=== PATIENT | female | born 1970 | race Caucasian/White ===

== ENCOUNTER 2016-09-16 06:55 | Emergency (ER) | payer OTHER ==
[~2016-09-16] VITALS: Ht 175.3 cm; Wt 135.6 kg
[~2016-09-16 06:55] MED LIST: CIPRO500 MG PO; FLAGYL500 MG PO; PRILOSEC20 MG PO; PROZAC20 MG PO; TRAMADOL HCL50 MG PO; ZOFRAN4 MG PO
[2016-09-16 07:31] LABS: BASOPHIL COUNT 0.1 K/uL (0-0.1); EOSINOPHIL (%) 4.8 % (0-5); EOSINOPHIL COUNT 0.4 K/uL (0-0.3); HEMATOCRIT 40.5 % (36.0-46.0); IMMATURE GRANULOCYTE (%) 0.1 % (0.0-0.7); IMMATURE GRANULOCYTE COUNT 0.1 K/uL; MCH 31.1 PG (29.0-34.0); MCHC 32.6 G/DL (30.0-36.0); MCV 95.3 FL (83-99); MEAN PLAT.VOLUME 9.7 uM^3 (9.5-12.4); MONOCYTE COUNT 0.7 K/uL (0-0.8); NEUTROPHIL (%) 51.3 % (45-76); NEUTROPHIL COUNT 4.4 K/uL (1.8-6.4); PLATELET COUNT 359 K/uL (156-360); RBC DIS.WIDTH-SD 46.2 % (39-53); RED BLOOD COUNT 4.25 M/uL (3.80-5.20); WHITE BLOOD COUNT 8.6 K/uL (4.1-10.2)
[2016-09-16 07:58] LABS: ADD MIUA? NO; BILIRUBIN NEGATIVE; BLOOD NEGATIVE; COLOR YELLOW ((YELLOW)); GLUCOSE (STRIP) NEGATIVE; KETONES NEGATIVE; LEUKOCYTES NEGATIVE; NITRITE NEGATIVE; PROTEIN (STRIP) NEGATIVE; SPECIFIC GRAVITY 1.015 (1.000-1.030); UCUL ADDED? NO; UROBILINOGEN 0.2 MG/DL (0.2-1.0)
[2016-09-16 08:00] LABS: ANION GAP 11 MEQ/L (2-14); CHLORIDE 102 MEQ/L (99-109); GFR ESTIMATE (CALCULATED) > 59 mL/min/; GLUCOSE 125 mg/dL (70-99); POTASSIUM 3.7 MEQ/L (3.7-5.4); SAMPLE HEMOLYSIS CHECK 0; SAMPLE ICTERIC CHECK 0; SAMPLE LIPEMIA CHECK 0; SODIUM 136 MEQ/L (136-147); UREA NITROGEN (BUN) 11 mg/dL (9-23)
[2016-09-16] MEDS ORDERED: PERCOCET 5/31 TABLET PO (09:09)
[2016-09-16 09:23] VITALS: BP 127/54
== END 2016-09-16 09:24 | disposition home or self-care (01) ==
LOC: EME 06:55
PROVIDERS: Emergency Medicine
DX: M54.5 Low back pain (principal); Z87.442 Personal history of urinary calculi; F17.200 Nicotine dependence, unspecified, uncomplicated
CPT/HCPCS: 74176; 80048; 81003; 85025; 99281; 99285; J1885; J2405; J7030

== ENCOUNTER 2016-10-15 07:43 | Emergency (ER) | payer OTHER ==
[~2016-10-15] VITALS: Ht 175.3 cm; Wt 133.0 kg
[~2016-10-15 07:43] MED LIST changes: +PERCOCET 5/31 TABLET PO
[2016-10-15 08:47] LABS: BASOPHIL COUNT 0.1 K/uL (0-0.1); EOSINOPHIL (%) 1.8 % (0-5); EOSINOPHIL COUNT 0.1 K/uL (0-0.3); HEMATOCRIT 40.6 % (36.0-46.0); IMMATURE GRANULOCYTE (%) 0.3 % (0.0-0.7); IMMATURE GRANULOCYTE COUNT 0.2 K/uL; LYMPHOCYTE COUNT 2.1 K/uL (1.0-2.8); MCH 30.9 PG (29.0-34.0); MCHC 32.5 G/DL (30.0-36.0); MCV 95.1 FL (83-99); MEAN PLAT.VOLUME 9.3 uM^3 (9.5-12.4); MONOCYTE COUNT 0.8 K/uL (0-0.8); NEUTROPHIL (%) 60.3 % (45-76); NEUTROPHIL COUNT 4.8 K/uL (1.8-6.4); PLATELET COUNT 344 K/uL (156-360); RBC DIS.WIDTH-CV 14.2 % (11.8-14.6); RBC DIS.WIDTH-SD 47.3 % (39-53); RED BLOOD COUNT 4.27 M/uL (3.80-5.20); WHITE BLOOD COUNT 7.9 K/uL (4.1-10.2)
[2016-10-15] MEDS ORDERED: ANTIVERT25 MG PO (08:54)
[2016-10-15 08:57] LABS: CHLORIDE 106 mEq/L (99-109); SODIUM 140 mEq/L (136-147)
[2016-10-15 08:59] LABS: GLUCOSE 118 mg/dL (70-99)
[2016-10-15 09:00] LABS: ANION GAP 9 MEQ/L (2-14)
[2016-10-15 09:03] LABS: GFR ESTIMATE (CALCULATED) > 59 mL/min/
[2016-10-15 09:04] LABS: UREA NITROGEN (BUN) 11 mg/dL (9-23)
[2016-10-15] MEDS ORDERED: VALIUM5 MG PO (09:39)
[2016-10-15 09:50] VITALS: BP 130/75
== END 2016-10-15 09:52 | disposition home or self-care (01) ==
LOC: EME 07:43
PROVIDERS: Emergency Medicine
DX: R42 Dizziness and giddiness (principal); F17.200 Nicotine dependence, unspecified, uncomplicated
CPT/HCPCS: 70450; 80048; 85025; 99281; 99284

== ENCOUNTER 2016-12-21 06:05 | Emergency (ER) | payer OTHER ==
[~2016-12-21] VITALS: Ht 175.3 cm; Wt 134.5 kg
[~2016-12-21 06:05] MED LIST changes: +ANTIVERT25 MG PO; +VALIUM5 MG PO
[2016-12-21 06:07] VITALS: BP 140/81
[2016-12-21] MEDS ORDERED: TYLENOL WITH C1 EACH PO (07:49)
== END 2016-12-21 08:13 | disposition home or self-care (01) ==
LOC: EME 06:05
DX: S40.012A Contusion of left shoulder, initial encounter (principal); X50.9XXA Other and unspecified overexertion or strenuous movements or postures, initial encounter; Y93.F2 Activity, caregiving, lifting; Y99.0 Civilian activity done for income or pay; F17.200 Nicotine dependence, unspecified, uncomplicated
CPT/HCPCS: 73030; 99281; 99283

== ENCOUNTER 2017-10-25 12:25 | Emergency (ER) | payer OTHER ==
[~2017-10-25] VITALS: Ht 175.3 cm; Wt 139.7 kg
[~2017-10-25 12:25] MED LIST changes: +TYLENOL WITH C1 EACH PO
[2017-10-25 13:17] LABS: HEMATOCRIT 38.2 % (36.0-46.0); HEMOGLOBIN 12.6 G/DL (11.9-15.5); MCV 93.9 FL (83-99); PLATELET COUNT 357 K/uL (156-360); RBC DIS.WIDTH-CV 13.4 % (11.8-14.6); RBC DIS.WIDTH-SD 46.2 % (39-53); RED BLOOD COUNT 4.07 M/uL (3.80-5.20); WHITE BLOOD COUNT 10.2 K/uL (4.1-10.2)
[2017-10-25 13:26] LABS: CHLORIDE 105 mEq/L (99-109); POTASSIUM 4.3 mEq/L (3.7-5.4); SODIUM 139 mEq/L (136-147)
[2017-10-25 13:28] LABS: GLUCOSE 92 mg/dL (70-99)
[2017-10-25 13:31] LABS: CREATININE 0.9 mg/dL (0.6-1.3); GFR ESTIMATE (CALCULATED) > 59 mL/min/
[2017-10-25 13:32] LABS: UREA NITROGEN (BUN) 16 mg/dL (9-23)
[2017-10-25 13:39] LABS: APPEARANCE CLEAR ((CLEAR)); BILIRUBIN NEGATIVE; BLOOD NEGATIVE; COLOR YELLOW ((YELLOW)); GLUCOSE (STRIP) NEGATIVE; KETONES NEGATIVE; LEUKOCYTES MODERATE; NITRITE NEGATIVE; PROTEIN (STRIP) NEGATIVE; SPECIFIC GRAVITY 1.027 (1.000-1.030); UROBILINOGEN 0.2 MG/DL (0.2-1.0)
[2017-10-25 13:42] LABS: BACTERIA RARE /HPF; EPITHELIAL CELLS 1+ /HPF; MUCUS TRACE /LPF; UCUL ADDED? NO; WHITE BLOOD CELLS 0-5 /HPF (0-5)
[2017-10-25] MEDS ORDERED: NAPROXEN500 MG PO (17:17)
[2017-10-25 18:04] VITALS: BP 142/72
== END 2017-10-25 18:05 | disposition home or self-care (01) ==
LOC: EME 12:25
DX: R07.81 Pleurodynia (principal); F17.200 Nicotine dependence, unspecified, uncomplicated
CPT/HCPCS: 71046; 74176; 80048; 81003; 85027; 99281; 99283

== ENCOUNTER 2017-11-09 10:21 | Emergency (ER) | payer OTHER ==
[~2017-11-09] VITALS: Ht 175.3 cm; Wt 138.3 kg
[~2017-11-09 10:21] MED LIST changes: +NAPROXEN500 MG PO
[2017-11-09 10:55] LABS: APPEARANCE SL.HAZY ((CLEAR)); BILIRUBIN NEGATIVE; BLOOD SMALL; COLOR YELLOW ((YELLOW)); GLUCOSE (STRIP) NEGATIVE; KETONES NEGATIVE; LEUKOCYTES TRACE; NITRITE NEGATIVE; PROTEIN (STRIP) NEGATIVE; SPECIFIC GRAVITY 1.021 (1.000-1.030); UROBILINOGEN 0.2 MG/DL (0.2-1.0)
[2017-11-09 11:02] LABS: BACTERIA RARE /HPF; CALCIUM OXALATE CRYSTALS 1+ /HPF; EPITHELIAL CELLS 2+ /HPF; MUCUS TRACE /LPF; RED BLOOD CELLS 0-5 /HPF (0-5); UCUL ADDED? NO; WHITE BLOOD CELLS 0-5 /HPF (0-5)
[2017-11-09 11:12] LABS: HEMATOCRIT 39.5 % (36.0-46.0); HEMOGLOBIN 13.1 G/DL (11.9-15.5); MCH 31.1 PG (29.0-34.0); MCHC 33.2 G/DL (30.0-36.0); MCV 93.8 FL (83-99); PLATELET COUNT 321 K/uL (156-360); RBC DIS.WIDTH-CV 14.2 % (11.8-14.6); RBC DIS.WIDTH-SD 48.2 % (39-53); RED BLOOD COUNT 4.21 M/uL (3.80-5.20); WHITE BLOOD COUNT 7.9 K/uL (4.1-10.2)
[2017-11-09 11:21] LABS: CHLORIDE 107 mEq/L (99-109); POTASSIUM 4.5 mEq/L (3.7-5.4); SODIUM 138 mEq/L (136-147)
[2017-11-09 11:23] LABS: GLUCOSE 94 mg/dL (70-99)
[2017-11-09 11:27] LABS: CREATININE 0.9 mg/dL (0.6-1.3); GFR ESTIMATE (CALCULATED) > 59 mL/min/; UREA NITROGEN (BUN) 15 mg/dL (9-23)
[2017-11-09 11:35] LABS: QUANTITATIVE HCG < 4.0 MIU/ML
[2017-11-09] MEDS ORDERED: ULTRAM50 MG PO (14:40)
[2017-11-09 15:06] VITALS: BP 124/65
== END 2017-11-09 15:06 | disposition home or self-care (01) ==
LOC: EME 10:21
DX: R10.9 Unspecified abdominal pain (principal); K76.0 Fatty (change of) liver, not elsewhere classified; Z87.442 Personal history of urinary calculi; F17.200 Nicotine dependence, unspecified, uncomplicated
CPT/HCPCS: 74176; 80048; 81003; 84702; 85027; 99281; 99284; J1885; J7030

== ENCOUNTER 2018-01-14 09:38 | Emergency (ER) | payer OTHER ==
[~2018-01-14] VITALS: Ht 175.3 cm; Wt 139.0 kg
[~2018-01-14 09:38] MED LIST changes: +ULTRAM50 MG PO
[2018-01-14 11:03] LABS: HEMATOCRIT 37.2 % (36.0-46.0); HEMOGLOBIN 12.5 G/DL (11.9-15.5); MCH 31.3 PG (29.0-34.0); MCHC 33.6 G/DL (30.0-36.0); MCV 93.2 FL (83-99); PLATELET COUNT 357 K/uL (156-360); RBC DIS.WIDTH-CV 14.6 % (11.8-14.6); RBC DIS.WIDTH-SD 50.2 % (39-53); RED BLOOD COUNT 3.99 M/uL (3.80-5.20); WHITE BLOOD COUNT 12.8 K/uL (4.1-10.2)
[2018-01-14 11:12] LABS: CHLORIDE 105 mEq/L (99-109); POTASSIUM 4.2 mEq/L (3.7-5.4); SODIUM 139 mEq/L (136-147)
[2018-01-14 11:13] LABS: GLUCOSE 89 mg/dL (70-99)
[2018-01-14 11:17] LABS: CREATININE 0.8 mg/dL (0.6-1.3); GFR ESTIMATE (CALCULATED) > 59 mL/min/
[2018-01-14 11:18] LABS: UREA NITROGEN (BUN) 16 mg/dL (9-23)
[2018-01-14] MEDS ORDERED: NORCO 5/3251 TABLET PO (11:47)
[2018-01-14 12:01] VITALS: BP 123/66
== END 2018-01-14 12:11 | disposition home or self-care (01) ==
LOC: EME 09:38
PROVIDERS: Physician Assistant
DX: M62.838 Other muscle spasm (principal); M79.604 Pain in right leg; F17.200 Nicotine dependence, unspecified, uncomplicated
CPT/HCPCS: 80048; 85027; 93971; 99281; 99284